=== PATIENT | female | born 1955 | race African-American/Black ===

== ENCOUNTER 2020-08-15 14:14 | Outpatient (CLI) | payer MEDICARE | END 2020-08-15 14:15 | disposition home or self-care (01) | LOC: CSHMAMMO 14:14 | PROVIDERS: ATTEND Internal Medicine | DX: Z12.31 Encounter for screening mammogram for malignant neoplasm of breast (principal); Z13.820 Encounter for screening for osteoporosis; M85.80 Other specified disorders of bone density and structure, unspecified site | CPT/HCPCS: 77063; 77067; 77080 ==